=== PATIENT | male | born 1985 | race Caucasian/White ===

== ENCOUNTER 2017-07-22 09:10 | Emergency (ER) | payer OTHER ==
[2017-07-22 09:15] VITALS: TEMP 99; BMI 32.5
[2017-07-22] MEDS ORDERED: ACETAMINOPHEN 325 MG TABLET (FP) PO ONE ×2 (09:34→09:39)
[2017-07-22] MEDS ORDERED: SODIUM CHLORIDE 2,000 ML IV STA (09:34)
[2017-07-22] MEDS ORDERED: FAMOTIDINE IV 20 MG/12 ML VIAL IVPUSH ONE ×2 (09:34→09:39)
[2017-07-22] MEDS ORDERED: MAG HYDROX/AL HYDROX/SIMETH 30 ML UNIT-DOSE CUP PO ONE (09:34)
[2017-07-22] MEDS ORDERED: ONDANSETRON 4 MG/2 ML VIAL IVPB ONE (09:34)
--- NOTE | 2017-07-22 09:38 | PDOC ---
History of Present Illness - History of Present Illness Initial Comments: 07/22/17 09:39 32 y/o M with no PMH presents to the ED with nausea, vomiting, and diarrhea for one day. Patient reports he may have eaten undercooked chicken last night. Since then, he has had multiple episodes of watery, non-bloody diarrhea. He reports one episode of vomiting this morning. He also reports associated mild LUQ pain. He denies fever, chills. Denies urinary symptoms. Denies chest pain, SOB. <Juana Corona - Last Filed: 07/22/17 09:39> - General History Source: Patient Exam Limitations: No Limitations <Ramiro Mendez - Last Filed: 07/22/17 11:45> - General Chief Complaint: Pain Stated Complaint: ABD PAIN Time Seen by Provider: 07/22/17 09:34 Past History <Juana Corona - Last Filed: 07/22/17 09:39> - Past Medical History Anemia: No Asthma: No Cancer: No Cardiac Disorders: No COPD: No - Immunization History Immunization Up to Date: Yes - Suicide/Smoking/Psychosocial Hx Smoking Status: Yes Smoking History: Never smoked Have you smoked in the past 12 months: No Number of Cigarettes Smoked Daily: 10 If you are a former smoker, when did you quit?: 11/2015 Hx Alcohol Use: Yes (SOCIAL) Drug/Substance Use Hx: No Substance Use Type: None <Ramiro Mendez - Last Filed: 07/22/17 11:45> - Past Medical History Allergies/Adverse Reactions: Allergies Allergy/AdvReac Type Severity Reaction Status Date / Time No Known Allergies Allergy Verified 07/22/17 09:15 Home Medications: Ambulatory Orders Sulfamethoxazole/Trimethoprim [Bactrim Ds -] 2 tab PO BID #28 tablet 10/19/15 Sulfamethoxazole/Trimethoprim [Bactrim *Ds*] 1 each PO BID #14 tablet 01/09/16 Acetaminophen [Tylenol] 650 mg PO Q4H PRN #20 tablet 07/22/17 Famotidine [Pepcid] 20 mg PO BID PRN #14 tablet 07/22/17 Mag Hydrox/Al Hydrox/Simeth [Mylanta Suspension -] 30 ml PO Q6H PRN #1 bottle Ondansetron HCl [Zofran] 4 mg PO Q8H PRN #15 tablet 07/22/17 Review of Systems - Review of Systems Comments:: 07/22/17 09:39 GENERAL/CONSTITUTIONAL: No fever or chills. No weakness. HEAD, EYES, EARS, NOSE AND THROAT: No change in vision. No ear pain or discharge. No sore throat. CARDIOVASCULAR: No chest pain or shortness of breath. RESPIRATORY: No cough, wheezing, or hemoptysis. GASTROINTESTINAL: (+) mild LUQ pain, nausea, vomiting, diarrhea. No constipation. GENITOURINARY: No dysuria, frequency, or change in urination. MUSCULOSKELETAL: No joint or muscle swelling or pain. No neck or back pain. SKIN: No rash NEUROLOGIC: No headache, vertigo, loss of consciousness, or change in strength/ sensation. ENDOCRINE: No increased thirst. No abnormal weight change. HEMATOLOGIC/LYMPHATIC: No anemia, easy bleeding, or history of blood clots. ALLERGIC/IMMUNOLOGIC: No hives or skin allergy. <Juana Corona - Last Filed: 07/22/17 09:39> *Physical Exam - Vital Signs Last Vital Signs Temp Pulse Resp BP Pulse Ox 99.0 F 81 18 115/71 100 07/22/17 09:11 07/22/17 09:11 07/22/17 09:11 07/22/17 09:11 07/22/17 09:11 - Physical Exam Comments: 07/22/17 09:39 GENERAL: Awake, alert, and fully oriented, in no acute distress HEAD: No signs of trauma EYES: PERRLA, EOMI, sclera anicteric, conjunctiva clear ENT: Auricles normal inspection, hearing grossly normal, nares patent, oropharynx clear without exudates. Dry mucosa. NECK: Normal ROM, supple, no lymphadenopathy, JVD, or masses LUNGS: Breath sounds equal, clear to auscultation bilaterally. No wheezes, and no crackles HEART: Regular rate and rhythm, normal S1 and S2, no murmurs, rubs or gallops ABDOMEN: Mild LUQ tenderness to palpation. Soft, normoactive bowel sounds. No guarding, no rebound. No masses EXTREMITIES: Normal range of motion, no edema. No clubbing or cyanosis. No cords, erythema, or tenderness NEUROLOGICAL: Cranial nerves II through XII grossly intact. Normal speech, normal gait SKIN: Warm, Dry, normal turgor, no rashes or lesions noted. <CoronaJackiJuana A - Last Filed: 07/22/17 09:39> - Vital Signs Last Vital Signs Temp Pulse Resp BP Pulse Ox 99.0 F 81 18 115/71 100 07/22/17 09:11 07/22/17 09:11 07/22/17 09:11 07/22/17 09:11 07/22/17 09:11 <Ramiro Mendez - Last Filed: 07/22/17 11:45> ED Treatment Course - LABORATORY CBC & Chemistry Diagram: 07/22/17 09:57 07/22/17 09:57 <Ramiro Mendez - Last Filed: 07/22/17 11:45> Medical Decision Making - Medical Decision Making 07/22/17 09:37 A portion of this note was documented by scribe services under my direction. I have reviewed the details of the note, within reason, and agree with the documentation with the following case summary and management plan written by me. Patient treated in the ED. Nursing notes are reviewed and incorporated into the medical decision-making. Vital signs reviewed. Peripheral IV access obtained by the nurse, laboratory studies are drawn and sent, reviewed and interpreted by myself. Vital Signs Temp Pulse Resp BP Pulse Ox 99.0 F 81 18 115/71 100 07/22/17 09:11 07/22/17 09:11 07/22/17 09:11 07/22/17 09:11 07/22/17 09:11 32-year-old male with no past medical history presents with nausea, vomiting, diarrhea. The patient reported he ate some chicken last night. This morning, he had too many, numerous loose watery stools. Had one episode of nausea and vomiting but denies fevers or chills. Has been unable to tolerate by mouth. Reports some left upper quadrant discomfort. Differential includes food poisoning versus gastroenteritis. We'll obtain labs, treat symptoms and IV fluids and reassess. 07/22/17 11:35 CBC, BMP 07/22/17 09:57 07/22/17 09:57 CMP Sodium 139 mmol/L (136-145) 07/22/17 09:57 Potassium 4.2 mmol/L (3.5-5.1) 07/22/17 09:57 Chloride 104 mmol/L (98-107) 07/22/17 09:57 Carbon Dioxide 27 mmol/L (21-32) 07/22/17 09:57 Anion Gap 8 (8-16) 07/22/17 09:57 BUN 21 mg/dL (7-18) H D 07/22/17 09:57 Creatinine 0.9 mg/dL (0.7-1.3) D 07/22/17 09:57 Creat Clearance w eGFR > 60 (>60) 07/22/17 09:57 Random Glucose 99 mg/dL (74-106) 07/22/17 09:57 Calcium 8.6 mg/dL (8.5-10.1) 07/22/17 09:57 Magnesium 2.2 mg/dL (1.8-2.4) 07/22/17 09:57 Total Bilirubin 0.7 mg/dL (0.2-1.0) D 07/22/17 09:57 AST 20 U/L (15-37) 07/22/17 09:57 ALT 56 U/L (12-78) 07/22/17 09:57 Alkaline Phosphatase 124 U/L (45-117) H D 07/22/17 09:57 Total Protein 8.0 g/dl (6.4-8.2) 07/22/17 09:57 Albumin 4.3 g/dl (3.4-5.0) 07/22/17 09:57 Lipase 136 U/L (73-393) 07/22/17 09:57 Pt reports feeling significantly better with IVF and medications. Return precautions given Labs reviewed with findings likely consistent with dehydration (BUN/CR ratio, and elevated Hct) Pt feels ready to go home I discussed the physical exam findings, ancillary test results and final diagnoses with the patient. I answered all of the patient's questions. The patient was satisfied with the care received and felt comfortable with the discharge plan and treatment plan. The patient will call their primary care physician within 24 hours to arrange follow-up and will return to the Emergency Department with any new, persistant or worsening symptoms. <Ramiro Mendez - Last Filed: 07/22/17 11:45> *DC/Admit/Observation/Transfer - Attestations Scribe Attestion: 07/22/17 09:39 Documentation prepared by Juana Corona, acting as medical advisor for Ramiro Mendez MD. <Juana Corona - Last Filed: 07/22/17 09:39> - Discharge Dispostion Admit: No <Ramiro Mendez - Last Filed: 07/22/17 11:45> Diagnosis at time of Disposition: Food poisoning Qualifiers: Encounter type: initial encounter Injury intent: accidental or unintentional Qualified Code(s): T62.91XA - Toxic effect of unspecified noxious substance eaten as food, accidental (unintentional), initial encounter - Discharge Dispostion Disposition: HOME Condition at time of disposition: Improved - Prescriptions Prescriptions: Acetaminophen [Tylenol] 650 mg PO Q4H PRN #20 tablet PRN Reason: Pain/Fever Famotidine [Pepcid] 20 mg PO BID PRN #14 tablet PRN Reason: Abdominal Pain Mag Hydrox/Al Hydrox/Simeth [Mylanta Suspension -] 30 ml PO Q6H PRN #1 bottle PRN Reason: Abdominal Pain Ondansetron HCl [Zofran] 4 mg PO Q8H PRN #15 tablet PRN Reason: Nausea - Referrals Referrals: Rosie Laboy MD [Primary Care Provider] - - Patient Instructions Printed Discharge Instructions: DI for Food Poisoning, DI for Viral Gastroenteritis -- Adult Additional Instructions: Please drink plenty of fluids and rest. It may take several days before your symptoms improve. Follow up with your doctor. - Post Discharge Activity Forms/Work/School Notes: Back to Work
[2017-07-22] MEDS ORDERED: FAMOTIDINE 20 MG/50 ML IVPB 20 MG/50 ML MG IVPB ONE (09:50)
[2017-07-22] MEDS ORDERED: ONDANSETRON 4 MG/2 ML VIAL ONE (09:51)
[2017-07-22] MEDS ORDERED: ACETAMINOPHEN 325 MG TABLET (FP) ONE (10:01)
[2017-07-22] MEDS ORDERED: MAG HYDROX/AL HYDROX/SIMETH 30 ML UNIT-DOSE CUP ONE (10:02)
[2017-07-22 10:41] LABS: ALBUMIN 4.3 g/dl (3.4-5.0); ANION GAP 8 (8-16); BLOOD UREA NITROGEN 21 mg/dL (7-18); CALCIUM 8.6 mg/dL (8.5-10.1); CHLORIDE 104 mmol/L (98-107); CO2 27 mmol/L (21-32); CREATININE 0.9 mg/dL (0.7-1.3); GLUCOSE,RANDOM 99 mg/dL (74-106); LIPASE 136 U/L (73-393); MAGNESIUM 2.2 mg/dL (1.8-2.4); POTASSIUM 4.2 mmol/L (3.5-5.1); SGOT/AST 20 U/L (15-37); SGPT/ALT 56 U/L (12-78); SODIUM 139 mmol/L (136-145)
[2017-07-22 10:42] LABS: ALK PHOS 124 U/L (45-117); BILIRUBIN,TOTAL 0.7 mg/dL (0.2-1.0)
[2017-07-22 11:06] LABS: BASO % 0.1 % (0-2.0); EOS % 0.4 % (0-4.5); HEMATOCRIT 53.6 % (35.4-49); HEMOGLOBIN 17.2 GM/dL (11.7-16.9); LYMPH % 4.7 % (8-40); MCH 28.5 pg (25.7-33.7); MEAN CELL VOLUME 89.1 fl (80-96); MEAN PLT VOLUME 9.5 fl (7.5-11.1); MONO % 5.4 % (3.8-10.2); NEUT % 89.4 % (42.8-82.8); PLATELET COUNT 216 K/MM3 (134-434); RBC 6.01 M/mm3 (4.00-5.60); RDW 13.7 % (11.9-15.9); WHITE BLOOD COUNT 10.1 K/mm3 (4.0-10.0)
[2017-07-22 12:06] VITALS: BP 125/77; PULSE 78
== END 2017-07-22 12:06 | disposition home or self-care (01) ==
LOC: JER 09:10
PROC: 3E033GC Introduction of Other Therapeutic Substance into Peripheral Vein, Percutaneous Approach (ICD-10-PCS; principal; 2017-07-22)
PROC: 3E033GC Introduction of Other Therapeutic Substance into Peripheral Vein, Percutaneous Approach (ICD-10-PCS; 2017-07-22)
PROC: 3E0337Z Introduction of Electrolytic and Water Balance Substance into Peripheral Vein, Percutaneous Approach (ICD-10-PCS; 2017-07-22)
DX: T62.8X1A Toxic effect of other specified noxious substances eaten as food, accidental (unintentional), initial encounter (principal); Y92.89 Other specified places as the place of occurrence of the external cause
CPT/HCPCS: 36415; 80053; 83690; 83735; 85025; 99282-25

== ENCOUNTER 2024-01-21 19:54 | Emergency (ER) | payer BC, OTHER ==
[2024-01-21 20:30] VITALS: BP 122/76; PULSE 59; RESP 20; TEMP 98.5; BMI 29.2
[2024-01-21] MEDS ORDERED: KETOROLAC TROMETHAMINE 30 MG/1 ML VIAL ONE (21:31)
[2024-01-21] MEDS: KETOROLAC TROMETHAMINE 30 MG/1 ML VIAL IVPUSH ONE (21:34)
[2024-01-21] MEDS ORDERED: METOCLOPRAMIDE HCL INJECTION 10 MG/2 ML VIAL ONE (21:35)
[2024-01-21] MEDS: METOCLOPRAMIDE HCL INJECTION 10 MG/2 ML VIAL IVPB ONE (21:39)
[2024-01-21] MEDS: SODIUM CHLORIDE 0.9% 500 ML INFUS.BAG IV ONE (21:39)
== END 2024-01-21 22:45 | disposition home or self-care (01) ==
LOC: JER 19:54
PROC: 3E0333Z Introduction of Anti-inflammatory into Peripheral Vein, Percutaneous Approach (ICD-10-PCS; principal; 2024-01-21)
PROC: 3E033GC Introduction of Other Therapeutic Substance into Peripheral Vein, Percutaneous Approach (ICD-10-PCS; 2024-01-21)
DX: G43.909 Migraine, unspecified, not intractable, without status migrainosus (principal); R11.0 Nausea; H53.8 Other visual disturbances
CPT/HCPCS: 99284-25

== ENCOUNTER 2024-07-20 12:16 | Emergency (ER) | payer OTHER, BC ==
[2024-07-20 12:28] VITALS: BP 116/82; PULSE 77; RESP 18; TEMP 98.6; BMI 27.4
[2024-07-20] MEDS ORDERED: KETOROLAC TROMETHAMINE 30 MG/1 ML VIAL ONE (13:08)
[2024-07-20] MEDS: KETOROLAC TROMETHAMINE 30 MG/1 ML VIAL IM ONE (13:14)
== END 2024-07-20 13:45 | disposition home or self-care (01) ==
LOC: JERFT 12:16 → JER 12:16 → JERFT 13:45
PROC: 3E0133Z Introduction of Anti-inflammatory into Subcutaneous Tissue, Percutaneous Approach (ICD-10-PCS; principal; 2024-07-20)
DX: M54.50 Low back pain, unspecified (principal); M79.645 Pain in left finger(s); V89.2XXA Person injured in unspecified motor-vehicle accident, traffic, initial encounter
CPT/HCPCS: 73140-TC-LT-FY; 99284-25